=== PATIENT | female | born 1960 | race Hispanic/Latino ===

== ENCOUNTER 2022-09-13 16:18 | Emergency (ER) | payer OTHER, SELFPAY ==
--- NOTE | ~2022-09-13 | XR_ITS ---
EXAMINATION: XR chest 1V Exam Date/Time: 09/13/2022 19:40 L D RN HISTORY: epigastric pain, HTN Comparison: None available. RESULT: Lines, tubes, and devices: None. Lungs and pleura: Mild bibasilar reticular opacities. Cardiomediastinal silhouette: Stable. Other: No acute osseous or upper abdominal finding. IMPRESSION: Mild bibasilar. Mild interstitial edema. Reviewed, dictated and finalized at location K. L D RN
--- NOTE | ~2022-09-13 | CT_ITS ---
EXAMINATION: CT abdomen pelvis w con DATE: 09/13/2022 19:39 INDICATION: RUQ/epigastric pain w/nausea TECHNIQUE: Computed tomography (CT) of the abdomen and pelvis was performed with 100 mL Omnipaque-350 intravenous contrast. Automated exposure control and iterative reconstruction technique were employe d. The dose-length product was 366.75 mGy-cm. COMPARISON: 05/30/2018. FINDINGS: Lower thorax: Bilateral dependent reticular and groundglass opacities. Liver: Normal. Biliary/Gallbladder: Gallbladder is absent. Mild intrahepatic and extra hepatic bile duct dilation li santhosh secondary to cholecystectomy. Pancreas: No mass or duct dilation. Spleen: Normal. Adrenals:No mass. Kidneys: Multiple bilateral cysts and hypodensities that are too small to characterize but also most likely represent cysts. Mild right renal scarring. GI tract: Distal esophageal and antral wall edema No small or large bowel dilation. Normal appendix. Mesentery/Peritoneum: No ascites, mass, or free air. Retroperitoneum: No mass. Atherosclerotic abdominal aortic and/or arterial calcifications. Pelvis: Pelvic organs are within normal limits. Soft Tissues: Soft tissues and body wall unremarkable. Bones: No acute osseous finding. IMPRESSION: Bibasilar atelectasis versus mild interstitial edema. Esophagitis/gastritis. Mild intrahepatic and ex tra hepatic bile duct dilation, presumably secondary to prior cholecystectomy, unless accompanied by biliary labs abnormalities. Reviewed, dictated and finalized at location K. E CLEANER IMPRESSION: Bibasilar atelectasis versus mild interstitial edema. Esophagitis/gastritis. Mi ld intrahepatic and extra hepatic bile duct dilation, presumably secondary to p rior cholecystectomy, unless accompanied by biliary labs abnormalities.
[2022-09-13 16:39] VITALS: BP 172/92; PULSE 98; RESP 16; TEMP 37.1; O2SAT 100
[2022-09-13 16:56] LABS: Basophils Percent Auto 0.2 % (0.2-1.2); Eosinophils Absolute Auto 0.1 K/mm3 (0-0.3); Eosinophils Percent Auto 0.6 % (0-4.4); Hemoglobin 15.2 g/dL (12.0-15.0); Immature Granulocyte Absolute 0.02 K/mm3 (0.00-0.031); Immature Granulocyte Percent A 0.2 % (0-0.5); Lymphocytes Absolute Auto 1.18 K/mm3 (0.9-3.2); Mean Corpuscular Hemoglobin 31.5 pg (26-34); Mean Corpuscular Volume 95.4 fl (80-100); Mean Platelet Volume 11.8 fl (7.4-10.4); Monocytes Absolute Auto 0.5 K/mm3 (0.1-0.6); Monocytes Percent Auto 5.7 % (2.6-8.5); Neutrophils Absolute Auto 6.7 K/mm3 (1.3-6.7); Neutrophils Percent Auto 79.3 % (45.5-73.1); Platelet Count Result 142 k/mm3 (150-375); Red Blood Count 4.82 M/mm3 (4.2-5.4); Red Cell Distribution Width 12.5 % (11.5-14.5); White Blood Count 8.4 K/mm3 (4.5-10.0)
[2022-09-13 17:07] LABS: Alanine Aminotransferase 14 U/L (6-35); Albumin Level 4.5 g/dL (3.5-5.1); Alkaline Phosphatase 73 U/L (38-126); Anion Gap 7 mmol/L (8-16); Aspartate Amino Transferase 25 U/L (14-36); Bilirubin,Total 0.5 mg/dL (0.2-1.3); Blood Urea Nitrogen 16 mg/dL (7-17); Calcium 8.8 mg/dL (8.4-10.2); Carbon Dioxide 29 mmol/L (22-30); Chloride 101 mmol/L (98-107); Estimated CRCL calculation 67 ml/min; Estimated Glomerular Filt Rate > 60; Glucose 115 mg/dL (65-110); Lipase 109 U/L (23-300); Potassium 3.8 mmol/L (3.4-5.0); Sodium 137 mmol/L (137-145)
[2022-09-13 17:09] LABS: Add Urine Microscopic? YES; Appearance Urine Clear (Clear); Bilirubin Urine Negative (Negative); Blood Urine 2+ (Negative); Color Urine Yellow (Yellow); Glucose Urine UA Negative (Negative); Ketones Urine Negative (Negative); Leukocyte Esterase Ur 1+ LEU/UL (Negative); Nitrate Urine Negative (Negative); Protein Urine Negative (Negative); Specific Grav Ur 1.015 (1.001-1.035)
[2022-09-13 17:18] LABS: Mucus Urine Rare /lpf; RBC Urine 21-50 /hpf (0-2); Squamous Epithelial Cell Urine Rare /hpf (Few); WBC Urine 16-20 /hpf
--- NOTE | 2022-09-13 19:04 | ED.ABDPAIN ---
HPI - Abdominal Pain General Chief Complaint: Abdominal Pain Stated Complaint: abdominal pain, fatigue Time Seen by Provider: 09/13/22 18:41 History of Present Illness HPI narrative: Patient is a 62-year-old female with a history of gastric ulcers, hypertension, hyperlipidemia presenting with abdominal pain. Patient is Pashto-speaking and history is obtained with her daughter translating. Offered to provide formal translating services but patient declines at this time. Patient reports developing upper abdominal pain over the last 1 to 2 days. Associated with nausea but no vomiting. States it feels similarly to a time when she had stomach ulcers. No fevers or chills, headache, chest pain, shortness of breath, constipation, diarrhea, dysuria, leg swelling. Related Data Home Medications Medication Instructions Recorded Confirmed atorvastatin 20 mg tablet mg 09/13/22 09/13/22 losartan 100 tablet 09/13/22 mg-hydrochlorothiazide 25 mg tablet Allergies Allergy/AdvReac Type Severity Reaction Status Date / Time No Known Allergies Allergy Verified 09/13/22 18:38 Review of Systems Review of Systems: All systems reviewed & are unremarkable except as noted in HPI and below Exam Narrative: GENERAL: Well-appearing, well-nourished, and in no acute distress. HEAD: Normocephalic, atraumatic. EYES: PERRLA and EOMI. ENT: Nares clear, no rhinorrhea or epistaxis. Mucous membranes moist. NECK: Supple. CHEST: Clear to auscultation. No respiratory distress. HEART: Regular rate and rhythm. No murmur heard. Normal peripheral pulses. ABDOMEN: Soft, tender in the right upper quadrant, epigastrium, and left upper quadrant; no guarding or rebound, nondistended, normal active bowel sounds. EXTREMITIES: Normal range of motion. No edema. SKIN: Warm, dry, no rash. NEURO: No focal deficits. Alert and oriented x3. PSYCH: Normal mood and affect. Course Vital Signs Vital signs: Vital Signs Temperature 98.7 F 09/13/22 16:39 Pulse Rate 98 09/13/22 16:39 Respiratory Rate 16 09/13/22 16:39 Blood Pressure 172/92 H 09/13/22 16:39 Pulse Oximetry 100 09/13/22 16:39 Oxygen Delivery Room Air 09/13/22 16:39 Temperature 98.7 F 09/13/22 16:39 Pulse Rate 105 H 09/13/22 21:40 Respiratory Rate 20 09/13/22 21:40 Blood Pressure 153/99 H 09/13/22 21:40 Pulse Oximetry 95 09/13/22 21:40 Oxygen Delivery Room Air 09/13/22 16:39 MDM - Abdominal Pain MDM Narrative Medical decision making narrative: Patient is a 62-year-old female presenting with abdominal pain and nausea. Patient is hypertensive, otherwise vitals are within normal limits. Exam is remarkable for the above. EKG per my interpretation shows sinus tachycardia, normal axis and intervals, there are some ST depressions in the lateral leads, no ST elevations. Blood work is unremarkable. Troponin negative x2. CT abdomen pelvis shows evidence of gastritis and esophagitis. UA is also concerning for UTI. Patient does report increased urinary frequency. Patient is also positive for COVID-19. Patient denies any chest pain or shortness of breath. Patient reports some improvement in her symptoms following GI cocktail and IV Zofran. States that she does still have some pain in her epigastrium. Will prescribe Keflex and Pepcid. Advised that she follow-up closely with gastroenterology given her history of gastric ulcers. Discussed appropriate supportive care. Appropriate return precautions given. Patient and her family voiced understanding and are agreeable with plan. Discharged in stable condition. Lab Data 09/13/22 16:50 09/13/22 16:50 Labs: Lab Results 09/13/22 09/13/22 09/13/22 Range/Units 16:50 16:50 16:50 WBC 8.4 (4.5-10.0) K/mm3 RBC 4.82 (4.2-5.4) M/mm3 Hgb 15.2 H (12.0-15.0) g/dL Hct 46.0 (37.0-47.0) % MCV 95.4 (80-100) fl MCH 31.5 (26-34) pg MCHC 33.0 (32-36) g/dl RDW 12.5
--- NOTE | 2022-09-13 19:07 | ECG_ITS ---
Measurements Intervals [place] Rate: 103 P: 48 IN: 186 QRS: 42 QRSD: 93 T: 45 QT: 341 QTc: 446 Interpretive Statements SINUS TACHYCARDIA BORDERLINE ST-T WAVE ABNORMALITY- DIFFUSE LEADS BASELINE WANDER- I, II, AVR, AVL, AVF, V2 BORDERLINE ECG NO PREVIOUS ECG AVAILABLE FOR COMPARISON Electronically Signed On 09-13-2022 20:16:38 BEHAVIORAL MODIFICATION ASSISTANT by Evens Pace D.O.
[2022-09-13] MEDS: SODIUM CHLORIDE 0.9% IV 1,000 ML 999 ML IV CONT (19:16)
[2022-09-13] MEDS: ONDANSETRON INJ 4 MG/2 ML VIAL IV PUSH (19:17)
[2022-09-13] MEDS: FAMOTIDINE 20 MG/2 ML VIAL IV PUSH (19:20)
[2022-09-13] MEDS: MORPHINE SULFATE (*CRX) 4 MG/ML INJ IV PUSH (19:23)
[2022-09-13 19:40] LABS: Troponin I < 0.012 ng/mL (0.000-0.034)
[2022-09-13] MEDS: BELLADONNA ALK/PHENOB ELIX 10 ML, MAG HYDROX/ALUMINUM HYD/SIMETH 30 ML, LIDOCAINE HCL 2... PO (20:11)
[2022-09-13 20:12] VITALS: BP 157/81; PULSE 77; RESP 16; O2SAT 98
[2022-09-13 20:23] LABS: Troponin I < 0.012 ng/mL (0.000-0.034)
[2022-09-13 20:34] LABS: Influenza A QL RT-PCR Negative (Negative); Influenza B QL RT-PCR Negative (Negative); SARS-CoV-2 RNA PCR Positive
[2022-09-13 20:35] LABS: NT Pro B Type Natriuretic Pept 54 pg/mL (5-100)
[2022-09-13] MEDS: CEPHALEXIN 500 MG CAPSULE PO (21:35)
[2022-09-13 21:40] VITALS: BP 153/99; PULSE 105; RESP 20; O2SAT 95
== END 2022-09-13 21:41 | disposition home or self-care (01) ==
PROVIDERS: Emergency Provider Emergency Medicine; PCP Internal Medicine Gastroenterology
DX: U07.1 COVID-19 (principal); K29.70 Gastritis, unspecified, without bleeding; K20.90 Esophagitis, unspecified without bleeding; N39.0 Urinary tract infection, site not specified; E78.5 Hyperlipidemia, unspecified; I10 Essential (primary) hypertension
CPT/HCPCS: 36415; 71045; 74177; 80053; 81001; 83690; 83880; 84484; 85025; 87086; 87088; 87636; 93005; 96361; 96374; 96375; 99284; A9270; J2270; J2405; J7030; Q9967

== ENCOUNTER 2022-11-30 01:52 | Day surgery (SDC) | payer OTHER, SELFPAY ==
[2022-11-17 14:56] VITALS: BMI 33.3
[2022-11-30 09:18] VITALS: BP 185/91; PULSE 65; RESP 18; TEMP 36.4; O2SAT 99; BMI 32.5
[2022-11-30] MEDS: LACTATED RINGERS 1,000 ML 150 ML IV CONT (09:39)
--- NOTE | 2022-11-30 10:03 | P.PNAN_ITS ---
Anes - Initial Pre Proc Eval Procedure: Operation Date: 11/30/22 10:30 Proposed Procedures p Esophagogastroduodenoscopy & Colonoscopy - Stephan Payne MD Date/Time: 11/30/22 10:03 Surgeon: Stephan Payne MD Pre Op Diagnosis: Abnormal Radiology Findings, Neoplasm screening Patient Data Age: 62 Gender: F Height: 1.45 m Weight: 68.2 kg Last Vital Signs Temp 97.5 F L 11/30/22 09:18 Pulse 65 11/30/22 09:18 Resp 18 11/30/22 09:18 BP 185/91 H 11/30/22 09:18 Pulse Ox 99 11/30/22 09:18 O2 Del Method Room Air 11/30/22 09:18 Allergies Allergy/AdvReac Type Severity Reaction Status Date / Time No Known Allergies Allergy Verified 11/30/22 09:23 Home Medications Medication Instructions Recorded Confirmed Type atorvastatin 20 mg tablet mg 09/13/22 09/13/22 History losartan 100 tablet 09/13/22 History mg-hydrochlorothiazide 25 mg tablet Patient hx anesthesia problems: none Family hx anesthesia problems: none Results Review: All pre-operative results and documents have been reviewed as part of the pre- operative evaluation. [facility] Past Medical History Medical History (Updated 09/30/22 @ 13:53 by Stephan Payne MD) Abnormal CT scan, gastrointestinal tract Colon cancer screening Epigastric pain HTN (hypertension), benign Social History Social History Smoking status: Never smoker Alcohol intake: never Substance use: never Substance use type: does not use Living arrangements: with family Additional living arrangements comments: -- Spiritual care concerns: No Anes - Eval Final PreProcedure Day of Procedure 11/30/22 10:03 Patient weight: obese Heart: regular rate and rhythm Lungs: clear to auscultation Airway: Mallampati scale class II Neurological: alert and oriented Last oral intake: >/= 8 hours ASA classification: II Emergent: no Anesthetic plan: proceed Anesthesia type and monitoring: general GIVS and standard monitoring Results Review: All pre-operative results and documents have been reviewed as part of the pre- operative evaluation. Informed Consent: The patient's anesthetic plan and its attendant risks and benefits were discussed with the patient/family/POA. Questions were solicited and answers provided to the satisfaction of the patient/family/POA.
--- NOTE | 2022-11-30 10:26 | PM.HPGS ---
History of Present Illness History of Present Illness Consent: Risks, benefits, and alternatives have been discussed and questions answered. Patient agrees to proceed with procedure. Chief complaint: Abnormal Radiology Findings, Neoplasm screening Narrative: Jennifer Bai is a 62 year old female here for first egd and colonoscopy, few months ago she came to ER visit because had severe epigastric pain, CT scan showed possible esophagitis/gastritis. She is doing ok and it is not taking any meds. Review of Systems Constitutional: Constitutional: Denies headache(s) and Denies weakness Eyes: Eyes: Denies blurry vision ENT: Reports Normal hearing present, Denies headache(s) and Denies neck pain Cardiovascular: Cardiovascular: Denies chest pain and Denies dyspnea Respiratory: Respiratory: Denies dyspnea Gastrointestinal: Gastrointestinal: Reports no additional gastrointestinal complaints Genitourinary: Genitourinary: Denies dysuria Musculoskeletal: Musculoskeletal: Denies neck pain Integumentary/Breasts: Skin/Breast: Denies dry skin Neurologic: Reports Normal hearing present, Denies headache(s) and Denies weakness Psychiatric: Psychiatric: Denies anxiety Endocrine: Endocrine: Denies change in body appearance Hematologic/Lymphatic: Hematologic/Lymphatic: Denies easy bleeding Allergic/Immunologic: Allergic/Immunologic: Denies urticaria PMFSH Past Medical History Medical History (Updated 09/30/22 @ 13:53 by Stephan Payne MD) Abnormal CT scan, gastrointestinal tract Colon cancer screening Epigastric pain HTN (hypertension), benign Social History Social History Smoking status: Never smoker Alcohol intake: never Substance use: never Substance use type: does not use Living arrangements: with family Additional living arrangements comments: -- Spiritual care concerns: No Meds Home Medications and Allergies Home Medications Medication Instructions Recorded Confirmed Type atorvastatin 20 mg tablet mg 09/13/22 09/13/22 History losartan 100 tablet 09/13/22 History mg-hydrochlorothiazide 25 mg tablet Allergies Allergy/AdvReac Type Severity Reaction Status Date / Time No Known Allergies Allergy Verified 11/30/22 09:23 Vital Signs Vital Signs - 24 hr 11/30/22 09:18 Temperature 97.5 F L Pulse Rate 65 Respiratory Rate 18 Blood Pressure 185/91 H Pulse Oximetry 99 Oxygen Delivery Room Air Exam Const: General: comfortable and no acute distress HENMT: Face/Nose/Sinus: Normal nares present Eyes: General: appearance normal, both eyes and all related structures Neck: Neck: no JVD Resp: Auscultation: clear to auscultation bilaterally Cardio: Rate: regular rate Rhythm: regular rhythm GI: Inspection: non-distended GI Palp: Yes Soft to palpation Skin: General skin exam: normal color Neuro: General: gait normal Speech: normal speech Extrem: General: normal to inspection Psych: Mental Status: mental status grossly normal Assessment and Plan Assessment and plan (1) Abnormal CT scan, gastrointestinal tract: Code(s): R93.3 - Abnormal findings on diagnostic imaging of other parts of digestive tract Status: Acute Assessment and Plan: asymptomatic now will assess with egd (2) Colon cancer screening: Code(s): Z12.11 - Encounter for screening for malignant neoplasm of colon Status: Acute Assessment and Plan: colonoscopy
--- NOTE | 2022-11-30 10:43 | SUR.OPER ---
EGD end 1038 COLONOSCOPY START 1042
[2022-11-30 11:04] VITALS: BP 127/73; PULSE 74; RESP 14; O2SAT 99
[2022-11-30 11:14] VITALS: BP 123/76; PULSE 70; RESP 18; O2SAT 100
[2022-11-30 11:24] VITALS: BP 151/80; PULSE 66; RESP 20; O2SAT 100
== END 2022-11-30 11:38 | disposition home or self-care (01) ==
PROVIDERS: PCP Internal Medicine Gastroenterology; Visit Provider Internal Medicine Gastroenterology
PROC: 0DJ08ZZ Inspection of Upper Intestinal Tract, Via Natural or Artificial Opening Endoscopic (ICD-10-PCS; CPT 43235; principal; 2022-11-30 10:30)
DX: Z12.11 Encounter for screening for malignant neoplasm of colon (principal); K63.5 Polyp of colon; K29.70 Gastritis, unspecified, without bleeding; I10 Essential (primary) hypertension; E66.9 Obesity, unspecified; Z68.32 Body mass index [BMI] 32.0-32.9, adult
CPT/HCPCS: 45380; 43239; 88305; J2001; J2704; J7120

== ENCOUNTER 2023-09-08 13:04 | Emergency (ER) | payer OTHER, SELFPAY ==
--- NOTE | ~2023-09-08 | XR_ITS ---
EXAMINATION: XR chest 2V DATE: 09/08/2023 14:30 INDICATION: 3 weeks of cough TECHNIQUE: PA and lateral views of the chest were obtained. COMPARISON: Chest radiograph dated 09/13/2022 FINDINGS: The lungs are clear with no focal airspace opacities, pulmonary edema, pleural effusion or pneumothor ax. The cardiomediastinal silhouette is normal. Mild to moderate thoracic spondylosis with chronic mi ld anterior wedging of a couple mid thoracic vertebral bodies. IMPRESSION: 1. No acute cardiopulmonary disease. Reviewed, dictated and finalized at location A. TER AND DECORATOR
[2023-09-08 13:32] VITALS: BP 163/102; PULSE 74; RESP 16; TEMP 36.5; O2SAT 98
--- NOTE | 2023-09-08 14:19 | ED.URI ---
HPI - URI/Sore Throat General Chief Complaint: Upper Respiratory Infection Stated Complaint: cough,sore throat Time Seen by Provider: 09/08/23 14:19 Source: patient Mode of arrival: ambulatory Limitations: no limitations History of Present Illness HPI Narrative: 63-year-old female presents with complaint of dry cough for 3 weeks. Afebrile. No chest pain or shortness of breath. Taking [id number] medications with no relief of symptoms. Reports that cough is worse at night. Tried to see her primary care physician but could not get appointment. All systems reviewed and negative except as noted above. Related Data Home Medications Medication Instructions Recorded Confirmed atorvastatin 20 mg tablet 20 mg PO DAILY 09/13/22 09/08/23 losartan 100 1 tablet PO DAILY 09/13/22 09/08/23 mg-hydrochlorothiazide 25 mg tablet Allergies Allergy/AdvReac Type Severity Reaction Status Date / Time No Known Allergies Allergy Verified 11/30/22 09:23 Review of Systems Review of Systems: CONSTITUTIONAL: Denies fever, chills, or sweats. EYES: Denies visual changes, redness, or discharge. ENT: Denies rhinorrhea, congestion, sore throat, or otalgia. CARDIOVASCULAR: Denies chest pain, palpitations, or edema. RESPIRATORY: Reports cough . Denies dyspnea. GASTROINTESTINAL: Denies abdominal pain, nausea, vomiting, or diarrhea. GENITOURINARY: Denies dysuria or hematuria. SKIN: Denies rash or itching. MUSCULOSKELETAL: Denies back pain, joint pain, or myalgia. NEUROLOGIC: Denies headache, numbness, or weakness. PSYCHIATRIC: Denies anxiety or depression. All other systems reviewed are negative, except as documented in HPI. [facility] Past Medical History Medical History (Updated 09/08/23 @ 14:53 by Naheed Vick NP) Abnormal CT scan, gastrointestinal tract Colon cancer screening Epigastric pain HTN (hypertension), benign Social History Social History Smoking status: Never smoker Alcohol intake: never Substance use: never Substance use type: does not use Living arrangements: with family Additional living arrangements comments: -- Spiritual care concerns: No Comments At time of signature, agree with nursing past medical, surgical, social and family history. There is no relevant family history pertinent to the presenting complaint. Exam Narrative: GENERAL: This is a well-nourished, well-developed patient, in no apparent distress. HEAD: normocephalic, atraumatic. EYES: PERRL. Sclera clear/white. Vision is grossly intact. EARS: External ears normal, auditory canals clear and without drainage, TMs normal without perforation. Hearing grossly intact. NOSE: External nose normal with no obvious nasal discharge, nares without redness, no rhinorrhea. THROAT: Mucous membranes moist, posterior pharynx clear. NECK: Neck supple, non-tender without lymphadenopathy, masses or thyromegaly. CARDIOVASCULAR: Regular rate and rhythm without murmurs, gallops, or rubs. RESPIRATORY: Clear to auscultation. Breath sounds equal bilaterally. No wheezes, rales, or rhonchi. SKIN: warm, Dry, intact with no suspicious lesions or rash, good texture and turgor. NEURO: awake, alert, and oriented to person, place and time. There were no obvious focal neurologic abnormalities. EXTREMITIES: No joint tenderness, effusion, or edema noted. Course Course Level of Care: Express Care Visit Vital Signs Vital signs: Vital Signs Temperature 36.5 C 09/08/23 13:32 Pulse Rate 74 09/08/23 13:32 Respiratory Rate 16 09/08/23 13:32 Blood Pressure 163/102 H 09/08/23 13:32 Pulse Oximetry 98 09/08/23 13:32 Oxygen Delivery Room Air 09/08/23 13:32 Temperature 36.5 C 09/08/23 13:32 Pulse Rate 74 09/08/23 13:32 Respiratory Rate 16 09/08/23 13:32 Blood Pressure 163/102 H 09/08/23 13:32 Pulse Oximetry 98 09/08/23 13:32 Oxygen Delivery Room Air
== END 2023-09-08 15:01 | disposition home or self-care (01) ==
PROVIDERS: Emergency Provider Nurse Practitioner Family; PCP Internal Medicine Gastroenterology
DX: J20.8 Acute bronchitis due to other specified organisms (principal); I10 Essential (primary) hypertension
CPT/HCPCS: 71046; 99213; G0463